=== PATIENT | male | born 1960 | race Caucasian/White ===

== ENCOUNTER 2023-10-14 21:35 | Emergency (ER) | payer BC ==
[2023-10-14] MEDS ORDERED: LEVETIRACETAM 500 MG/5 ML VIAL IV ONE (21:50)
[2023-10-14] MEDS ORDERED: NA CHLORIDE 0.9% 1,000 ML ONE (21:51)
[2023-10-14] MEDS ORDERED: NA CHLORIDE 0.9% 250 ML ONE (21:51)
[2023-10-14 22:13] LABS: Absolute Basophils 0.1 K/uL (0-0.5); Absolute Eosinophils 0.2 K/uL (0-0.5); Absolute Lymphocytes (CBC) 2.8 K/uL (0.7-4.9); Absolute Monocytes 0.8 K/uL (0.1-1.3); Absolute Neutrophil 5.4 K/uL (1.8-8.0); Basophils % 0.7 % (0-1.3); Eosinophils % 2.6 % (0-4.4); Hematocrit 41.4 % (39.6-49.0); Hemoglobin 14.4 g/dL (13.6-17.9); Lymphocytes % 29.8 % (15.3-44.8); MCH 32.3 pg (27.0-35.0); MCHC 34.8 g/dL (32.0-36.0); MCV 92.8 fL (80-100); MPV 7.4 fL (7.6-11.3); Monocytes % 8.5 % (3.3-12.3); Neutrophils % 58.4 % (41.7-73.7); Nucleated Red Blood Cells % 0.1 % (0-0); Platelets 267 thou/uL (152-406); RBC Red Blood Cell Count 4.46 M/uL (4.33-5.43); Red Cell Distribution Width 12.5 % (12.1-15.2)
--- NOTE | 2023-10-14 22:48 | RAD REPORT ---
EXAM DESCRIPTION: CT - Head Brain Wo Cont - 10/14/2023 10:31 pm CLINICAL HISTORY: SEIZURE COMPARISON: Chest Single View dated 10/14/2023 TECHNIQUE: Noncontrast head CT images were obtained without IV contrast. Multiplanar reformats were generated and reviewed. All CT scans are performed using dose optimization technique as appropriate and may include automated exposure control or mA/KV adjustment according to patient size. FINDINGS: No intracranial hemorrhage, mass, or edema. Midline structures are unremarkable. No hydrocephalus. Left temporal encephalomalacia suggesting remote ischemia, with ex vacuo dilation of the left lateral ventricle temporal horn and trigone. Posey-white matter differentiation elsewhere is preserved, witho ut evidence of acute infarct. Patchy periventricular and deep white matter hypodensities, nonspecific, but suggestive chronic small vessel ischemic changes. No abnormal extra-axial fluid collections. Mastoid air cells and visualized portions of the paranasal sinuses are clear. No acute bony findings. IMPRESSION: No evidence of an acute intracranial process. Chronic appearing left temporal region encephalomalacia, suggesting remote ischemia.
--- NOTE | 2023-10-14 22:49 | RAD REPORT ---
EXAM DESCRIPTION: Jose Single View10/14/2023 10:12 pm CLINICAL HISTORY: COUGH COMPARISON: CHEST PA AND LAT 2 VIEW dated 01/23/2009 TECHNIQUE: Portable AP view of the chest. FINDINGS: Decreased inspiratory effort limits evaluation. The lungs are clear. No pneumothorax or e ffusion. The cardiomediastinal contours are unremarkable. IMPRESSION: No acute cardiopulmonary process.
--- NOTE | 2023-10-14 23:13 | EDPHYS ---
Physician Documentation [facility] Name: Miles Allyson Age: 62 yrs Sex: Male : 1960 Arrival Date: 10/14/2023 Time: 21:35 Bed 8 Private MD: ED Physician Dimitry Veronica HPI: 10/13 21:39 This 62 yrs old Male presents to ER via Unassigned with complaints of seizure.ec2 21:39 Patient arrives today for reported seizure. Patient with history of seizures and is on ec2 Keppra. Patient reportedly has postictal periods lasting greater than 6 hours. No reported falls injuries or trauma. History gathered from EMS.. 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 - Infectious Disease History:: Denies. - Social history:: Smoking status: unknown. ROS: 21:39 Constitutional: as per hpi ec2 Exam: 21:39 Constitutional: GEN: NAD Head: atraumatic Eyes: EOMI Ears: External ears are ec2 normal. CV: regular rate LUNGS: no respiratory distress ABD: non-distended SKIN: no evidence of rashes MSK: no evidence of trauma NEURO: moves all extremities equally, cranial nerves II through XII intact, cooperative however easily distractible Vital Signs: 21:47 BP 133 / 9; Pulse 78; Resp 18; Temp 98.2; Pulse Ox 93% on R/A; Weight 121.5 kg; Height bm8 5 ft. 10 in. ; Pain 0/10; 21:49 BP 133 / 99; ec2 22:02 BP 133 / 99; Pulse 81; Resp 19; Pulse Ox 98% on R/A; kd3 23:09 Pulse 82; Resp 16; Pulse Ox 97% on R/A; kd3 23:44 BP 126 / 69; Pulse 73; Resp 19; Pulse Ox 96% on R/A; kd3 21:47 Body Mass Index 38.43 (121.50 kg, 177.8 cm) bm8 21:47 Pain Scale: Adult bm8 [place] Coma Score: 21:49 Eye Response: to pain(2). Motor Response: localizes pain(5). Verbal Response: bm8 incomprehensible(2). Total: 9. MDM: 21:37 Patient medically screened. ec2 21:39 Data reviewed: vital signs. ED course: Patient arrives today for evaluation of a ec2 seizure episode tonight. Examination remarkable for well-appearing nontoxic and appears otherwise with a reassuring neurologic exam. Will obtain lab work, EKG, loaded patient with Keppra, obtain CT scan. Suspect seizure, evaluate for electrolyte disturbances, arrhythmia. 21:47 ED course: EKG independently reviewed and interpreted by me, shows normal sinus rhythm, ec2 rate of 75, no acute ST segment elevations, intervals nonconcerning.. 22:26 ED course: Metabolic profile and CBC are reassuring. . ec2 22:57 ED course: Chest x-ray, CT scan of the head showed no acute intracranial process. ec2 Metabolic profile is reassuring, CBC reassuring. . 23:12 ED course: On reassessment patient is well-appearing in no acute distress, no ec2 recurrence of seizures. Patient is awake and alert and answering questions appropriately, family at bedside. Will discharge home and have the patient follow-up with neurology. Return precautions given. . 10/13 21:38 Order name: Basic Metabolic Panel; Complete Time: 22:26 ec2 10/13 21:38 Order name: CBC with Diff; Complete Time: 22:26 ec2 10/13 21:38 Order name: XRAY Chest (1 view); Complete Time: 22:56 ec2 10/13 21:38 Order name: CT Head Brain wo Cont; Complete Time: 22:56 ec2 10/13 21:38 Order name: Cardiac monitoring; Complete Time: 21:46 ec2 10/13 21:38 Order name: EKG - Nurse/Tech; Complete Time: 21:46 ec2 10/13 21:38 Order name: IV Saline Lock; Complete Time: 22:02 ec2 10/13 21:38 Order name: Labs collected and sent; Complete Time: 22:02 ec2 10/13 21:38 Order name: O2 Per Protocol; Complete Time: 22:02 ec2 10/13 21:38 Order name: O2 Sat Monitoring; Complete Time: 22:02 ec2 Administered Medications: 22:01 Drug: Droperidol IVP 1.25 mg IVP once Route: IVP; Site: left antecubital; [facility] 10/14 00:08 Follow up: Response: No adverse reaction [facility] 10/13 22:01 Drug: NS 0.9% IV 1000 ml IV at 1 bolus Per protocol; 1000 mL bolus Route: IV; Rate: 1 kd3 bolus; Site: left antecubital; 10/14 00:08 Follow up: IV Status: Completed infusion; IV Intake: 500ml [facility] 10/13 22:01 Drug: Keppra IV 1000 mg IV at bolus once Route: IV; Rate: bolus; Site: left antecubital;3 10/14 00:08 Follow up: IV Status: Completed infusion; IV Intake: 250ml kd3 Disposition Summary: 10/14/23 23:12 Discharge Ordered Notes: You need to follow up with your neurologist for your seizures. Location: Home ec2 Condition: Stable ec2 Diagnosis - Other seizures ec2 Followup: ec2 - With: Private Physician - When: - Reason: Re-evaluation by your physician Followup: ec2 - With: Jose Braswell MD - When: - Reason: Recheck today's complaints Discharge Instructions: - Discharge Summary Sheet ec2 - Seizure, Adult ec2 Forms: - Medication Reconciliation Form ec2 - Antibiotic Education ec2 - Prescription Opioid Use ec2 - Patient Portal Instructions ec2 - Leadership Thank You Letter ec2 Signatures: Dispatcher [employer] Megan Pierre RN RN kd3 Dimitry Veronica MD MD ec2 Michael Ellison RN RN bm8 Corrections: (The following items were deleted from the chart) 10/13 21:38 21:38 Chest Single View+RAD.RAD.BRZ ordered. EDMS EDMS 21:38 21:38 Head Brain Wo Cont+CT.RAD.BRZ ordered. EDMS EDMS
--- NOTE | 2023-10-14 23:13 | ER ---
Nurse's Notes [facility] Name: Miles Valadez Age: 62 yrs Sex: Male : 1960 Arrival Date: 10/14/2023 Time: 21:35 Bed 8 Private MD: Diagnosis: Other seizures Presentation: 10/13 21:47 Chief complaint: EMS states: tone out for seizure, on arrival pt appeared to be in a bm8 postictal state. Coronavirus screen: At this time, the client does not indicate any symptoms associated with coronavirus-19. Ebola Screen: No symptoms or risks identified at this time. Initial Sepsis Screen: Does the patient meet any 2 criteria? No. Patient's initial sepsis screen is negative. Does the patient have a suspected source of infection? No. Patient's initial sepsis screen is negative. Risk Assessment: Do you want to hurt yourself or someone else? Patient reports no desire to harm self or others. Onset of symptoms is unknown. 21:47 Method Of Arrival: EMS: [facility] bm8 21:47 Acuity: MOUNA 2 bm8 21:49 Care prior to arrival: IV initiated. 20 GA, in the left antecubital area, midazolam 5mg bm8 IN. 21:49 Care prior to arrival: Medication(s) given: 250 ml NS. bm8 Triage Assessment: 21:49 General: Appears in no apparent distress. uncomfortable, Behavior is listless. Pain: bm8 Unable to use pain scale. EENT: No deficits noted. No signs and/or symptoms were reported regarding the EENT system. Neuro: Level of Consciousness is post ictal, Oriented to person, Reaction to noxious stimuli is withdrawal Seizure activity reported prior to arrival. Type of seizure: tonic-clonic seizure. Patient is post-ictal at this time. Cardiovascular: Heart tones S1 S2 present Capillary refill < 3 seconds Patient's skin is warm and dry. Rhythm is sinus rhythm. Respiratory: Airway is patent Trachea midline Respiratory effort is even, unlabored, Respiratory pattern is regular, symmetrical, Breath sounds are clear bilaterally. GI: No signs and/or symptoms were reported involving the gastrointestinal system. GI: No deficits noted. : No deficits noted. No signs and/or symptoms were reported regarding the genitourinary system. Derm: No deficits noted. No signs and/or symptoms reported regarding the dermatologic system. Musculoskeletal: muscle twitching in right hand. 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 - Infectious Disease History:: Denies. - Social history:: Smoking status: unknown. Screenin:19 [facility] ED Fall Risk Assessment (Adult) History of falling in the last 3 months, kd3 including since admission No falls in past 3 months (0 pts) Confusion or Disorientation No (0 pts) Intoxicated or Sedated No (0 pts) Impaired Gait No (0 pts) Mobility Assist Device Used No (0 pt) Altered Elimination No (0 pt) Score/Fall Risk Level 0 - 2 = Low Risk Oriented to surroundings. Abuse screen: Denies threats or abuse. Denies injuries from another. Nutritional screening: No deficits noted. Tuberculosis screening: No symptoms or risk factors identified. Assessment: 22:02 General: Appears in no apparent distress. Neuro: Seizure activity reported prior to kd3 arrival. Patient is post-ictal at this time. Respiratory: Airway is patent Trachea midline Respiratory effort is even, unlabored, Respiratory pattern is regular, symmetrical. 23:10 Reassessment: Patient and/or family updated on plan of care and expected duration. Pain kd3 level reassessed. Patient is alert, oriented x 3, equal unlabored respirations, skin warm/dry/pink. Patient states feeling better. Patient states symptoms have improved. General: Provider at bedside speaking with the pt's . . 23:19 General: Appears in no apparent distress. Behavior is calm, cooperative. Neuro: Level kd3 of Consciousness is awake, alert, obeys commands, Oriented to person, place, time, situation. Vital Signs: 21:47 BP 133 / 9; Pulse 78; Resp 18; Temp 98.2; Pulse Ox 93% on R/A; Weight 121.5 kg; Height bm8 5 ft. 10 in. ; Pain 0/10; 21:49 BP 133 / 99; ec2 22:02 BP 133 / 99; Pulse 81; Resp 19; Pulse Ox 98% on R/A; kd3 23:09 Pulse 82; Resp 16; Pulse Ox 97% on R/A; kd3 23:44 BP 126 / 69; Pulse 73; Resp 19; Pulse Ox 96% on R/A; kd3 21:47 Body Mass Index 38.43 (121.50 kg, 177.8 cm) bm8 21:47 Pain Scale: Adult bm8 [place] Coma Score: 21:49 Eye Response: to pain(2). Motor Response: localizes pain(5). Verbal Response: bm8 incomprehensible(2). Total: 9. ED Course: 21:37 Patient arrived in ED. ec2 21:37 Dimitry Veronica MD is Attending Physician. ec2 21:47 eMgan Souza, BLAS is Primary Nurse. kd3 21:49 Triage completed. bm8 21:49 Arm band placed on left wrist. Patient placed in an exam room, on a stretcher, on bm8 chief ultrasound technologist, on pulse oximetry. 21:56 Maintain EMS IV. Dressing intact. Good blood return noted. Site clean \T\ dry. Gauge \T\ bm 8 site: 20g lac. IV is patent, with fluids infusing freely, with good blood return, Flushed left antecubital with 5 ml normal saline. 22:02 Basic Metabolic Panel Sent. kd3 22:02 CBC with Diff Sent. kd3 22:14 XRAY Chest (1 view) In Process Unspecified. EDMS 22:33 CT Head Brain wo Cont In Process Unspecified. EDMS 23:12 Jose Braswell MD is Referral Physician. ec2 10/14 00:07 Patient has correct armband on for positive identification. Provided Education on: kd3 seizure follow up . 00:07 Seizure precautions initiated. kd3 00:07 No provider procedures requiring assistance completed. IV discontinued, intact, kd3 bleeding controlled, No redness/swelling at site. Pressure dressing applied. Administered Medications: 10/13 22:01 Drug: Droperidol IVP 1.25 mg IVP once Route: IVP; Site: left antecubital; kd3 10/14 00:08 Follow up: Response: No adverse reaction kd3 10/13 22:01 Drug: NS 0.9% IV 1000 ml IV at 1 bolus Per protocol; 1000 mL bolus Route: IV; Rate: 1 kd3 bolus; Site: left antecubital; 10/14 00:08 Follow up: IV Status: Completed infusion; IV Intake: 500ml kd3 10/13 22:01 Drug: Keppra IV 1000 mg IV at bolus once Route: IV; Rate: bolus; Site: left antecubital;kd3 10/14 00:08 Follow up: IV Status: Completed infusion; IV Intake: 250ml kd3 Medication: 00:07 VIS not applicable for this client. kd3 Intake: 00:08 IV: 250ml; Total: 250ml. kd3 00:08 IV: 500ml; Total: 750ml. kd3 Outcome: 10/13 23:12 Discharge ordered by . [email or web address] 10/14 00:07 Discharged to home via wheelchair, with family, kd3 Condition: stable Discharge instructions given to patient, family, Instructed on discharge instructions, follow up and referral plans. Demonstrated understanding of instructions, follow-up care, 00:08 Patient left the ED. kd3 Signatures: Dispatcher [employer] Megan Pierre RN RN kd3 Dimitry Veronica MD MD ec2 Michael Ellison RN RN bm8 Corrections: (The following items were deleted from the chart) 10/13 23:19 23:10 Reassessment: No changes from previously documented assessment. Patient and/or kd3 family updated on plan of care and expected duration. Pain level reassessed. Patient is alert, oriented x 3, equal unlabored respirations, skin warm/dry/pink. kd3
[2023-10-15 07:41] VITALS: TEMP 98.2
[2023-10-15 07:45] VITALS: BP 126/69; O2SAT 96
--- NOTE | 2023-10-15 11:42 | EKG ---
Test Date: 2023-10-14 Test Time: 21:44:46 [employer] Vess[employer] Inspector: RV MEASUREMENT RESULTS: Intervals: Rate: 75 NM: 194 QRSD: 92 QT: 382 QTc: 426 [place]: P: 51 NM: 194 QRS: 60 T: 42 INTERPRETIVE STATEMENTS: Normal sinus rhythm Normal ECG Compared to ECG 01/23/2009 15:58:20 No significant changes Electronically Signed On 10-15-23 11:41:20 CDT by Cain Pat
== END 2023-10-15 00:08 | disposition home or self-care (01) ==
LOC: ER 21:35
DX: G40.909 Epilepsy, unspecified, not intractable, without status epilepticus (principal)
CPT/HCPCS: 85025; 80048; 36415; 70450; 71045; J1953; J7050; J7030; 93005; 96365; 96366; 96375; 99284